=== PATIENT | female | born 1990 | race Caucasian/White ===

== ENCOUNTER → 2021-12-07 | Outpatient (REF) | payer BC ==
[2021-12-07 17:24] LABS: FOLLICLE STIMULATING HORMONE 21.1 mIU/mL; LUTEINIZING HORMONE 13.4 mIU/mL; PROGESTERONE 41.65 NG/ML
[2021-12-11 23:07] LABS: TESTOSTERONE FREE (DIRECT) 2.9 pg/mL (0.0-4.2)
== END ==
LOC: M LAB REF 15:30
PROVIDERS: ATTEND Obstetrics & Gynecology
DX: N95.1 Menopausal and female climacteric states (principal); F52.0 Hypoactive sexual desire disorder; E34.9 Endocrine disorder, unspecified